=== PATIENT | female | born 1985 | race Caucasian/White ===

== ENCOUNTER 2016-09-10 05:49 | Inpatient (IN) | payer OTHER ==
[~2016-09-10 05:49] MED LIST: Citric Acid/Sodium Citrate Solution 30 ML Cup PO ONE; Ondansetron 4 MG/2 ML SDV IVPUSH PRN; Sodium Chloride 0.9% 10 ML Syringe FLUSH PRN; ceFAZolin 2 GM in Premix Bag 1 BAG IV ONE
[2016-09-10] MEDS ORDERED: Oxytocin/Normal Saline 60 UNIT/1,000 ML BAG ONE (06:26)
[2016-09-10] MEDS: Lactated Ringers 1,000 ML IV ONE ×3 (06:45→14:27)
[2016-09-10] MEDS ORDERED: Oxytocin/Normal Saline 30 UNIT/500 ML BAG IV SCH (07:00)
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
[2016-09-10] MEDS ORDERED: Morphine PF 5 MG/10 ML SDV ONE (12:51)
[2016-09-10] MEDS ORDERED: Midazolam 1 MG/ML 2 ML SDV ONE (12:51)
[2016-09-10] MEDS ORDERED: Oxytocin/Normal Saline 30 UNIT/500 ML BAG IV ONE (13:43)
[2016-09-10] MEDS ORDERED: Ketorolac 30 MG/ML SDV ONE (14:22)
[2016-09-10] MEDS ORDERED: ePHEDrine 50 MG/ML SDV ONE (14:22)
[2016-09-10] MEDS ORDERED: Ondansetron 4 MG/2 ML SDV ONE ×2 (14:22→14:24)
[2016-09-10] MEDS ORDERED: Methylergonovine 0.2 MG/1 ML Amp IM PRN (15:15)
[2016-09-10] MEDS ORDERED: diphenhydrAMINE 50 MG/ML SDV IVPUSH PRN (15:15)
[2016-09-10] MEDS ORDERED: Misoprostol 400 MCG (4 X 100 MCG TAB) RECTAL PRN (15:15)
[2016-09-10] MEDS ORDERED: Naloxone 2 MG/2 ML Syringe IVPUSH PRN (15:15)
[2016-09-10] MEDS ORDERED: Acetaminophen/oxyCODONE 325-5 MG Tab PO PRN (15:15)
[2016-09-10] MEDS ORDERED: ePHEDrine 50 MG/ML SDV IVPUSH PRN (15:15)
[2016-09-10] MEDS ORDERED: Acetaminophen 325 MG Tab PO PRN (15:15)
[2016-09-10] MEDS ORDERED: Carboprost Tromethamine 250 MCG/1 ML Amp IM ONE (15:15)
[2016-09-10] MEDS ORDERED: Measles, Mumps & Rubella Vaccine 0.5 ML SDV SUBCUT ONE (16:19)
--- NOTE | 2016-09-10 17:33 | OR ---
DATE: 09/10/2016 PROCEDURE PERFORMED: Repeat low transverse section with double-layer closure. INDICATION FOR PROCEDURE: Elective at term. GENERAL II FARMWORKER: Dr. Jacinto Roman. PREPROCEDURE DIAGNOSES: 1. A 39 and 0/7th weeks' intrauterine based on last menstrual period and 7-week ultrasound. 2. 2, para 1-0-0-1. 3. Obesity. 4. Group B strep positive. O positive, equivocal. 5. Anxiety and depression. 6. Gastroesophageal reflux disease. 7. History of oral herpes lesions. 8. History of migraine headaches. 9. Polycystic ovarian syndrome. 10.Post traumatic stress disorder. 11.Family history of colon cancer. POSTPROCEDURE DIAGNOSES: 1. A 39 and 0/7th weeks' intrauterine based on last menstrual period and 7-week ultrasound. 2. 2, para 2-0-0-2. 3. Obesity. 4. Group B strep positive. O positive, equivocal. 5. Anxiety and depression. 6. Gastroesophageal reflux disease. 7. History of oral herpes lesions. 8. History of migraine headaches. 9. Polycystic ovarian syndrome. 10.Post traumatic stress disorder. 11.Family history of colon cancer. 12.Delivery of viable female , scores of 9 and 9, weight 3025 g. BRIEF HISTORY: A 31-year-old female, admitted to the hospital for planned elective section at term. See admission history and physical for full details including history. CONSENT: Discussed with the patient and her indications, risks, benefits, and alternatives of repeat low transverse section including but not limited to, risk of infection and plan for preoperative antibiotics, risk of bleeding to the point of requiring a blood transfusion, as well as its inherent risks, risk of injury to any unintended organs or adjacent structures including, but not limited to, large blood vessels, nerves, veins, muscles, fallopian tubes, ovaries, uterus, bladder, intestines, and even potential injury to the baby, risk of complications for mother or baby requiring transfer to a higher level of care for definitive treatment, even remote risk of . She agreed to proceed and appropriate consent forms were signed and placed in the chart. PROCEDURE IN DETAIL: The patient was taken to the operating room and spinal anesthesia obtained. Diallo indwelling catheter was placed, and the patient was prepped and draped in the normal dorsal supine position with leftward tilt and abdomen and pannus taped up. Abdomen prepped and then sterile drapes applied in the usual fashion. Skin was tested and then incised in a Pfannenstiel location at 1329 hours and carried down through the underlying subcutaneous tissues with cautery and finger dissection. The fascia was incised in the midline with cautery and extended bilaterally with traction and continued cautery. The superior fascial edge grasped elevated and rectus muscles dissected off bluntly and with cautery. Inferior fascial edge then grasped tented up, and rectus muscles dissected off with traction and cautery as well. Rectus muscles in the midline with finger dissection and peritoneal cavity entered with finger dissection and extended with traction. Bacilio O retractor was then placed in appropriate location for low transverse uterine incision identified and made at 1334 hours. The baby then delivered at 1335 hours. Infant's mouth and nose were bulb suctioned. Three-vessel umbilical cord was doubly clamped and cut, and baby taken over to the warmer for further evaluation. Cord blood sample then obtained, and placenta delivered by gentle cord traction and concomitant uterine massage. Uterus cleared of any clots and debris with dry lap sponge and then hysterotomy site closed with a running lock stitch of 0 Vicryl in the usual fashion. This incision was not hemostatic; therefore, a second imbricating stitch of 0 Vicryl was used as well as some additional spot cautery and hemostasis appeared good, so the Bacilio retractor was removed and pericolic gutters were cleared of all clots and debris. Hysterotomy site reinspected and irrigated and there was some oozing present. Single figure-of- eight stitch was placed and aided with hemostasis, some additional spot cautery was used and then hemostasis was achieved, and this layer irrigated a second time for verification of hemostasis. The peritoneal and muscle layer was brought together at the base with a loose [id number] stitch and then this layer was irrigated. The fascia was then closed with a running stitch of 0 looped PDS in the usual fashion taking extra care not to injure the underlying omentum or viscera, subcutaneous tissues were then irrigated and cleared of any clots and debris and any subcutaneous bleeders treated with cautery. Skin was then closed with zeus at 1413 hours and the patient had tolerated the procedure well. FINDINGS: Viable female infant, scores of 9 and 9. Weight 6 pounds 11 ounces, 3025 g. 18 inches long. URINE OUTPUT: 250 mL clear. ESTIMATED BLOOD LOSS: 500 mL. FLUIDS: 1750 mL of crystalloids. DISPOSITION: Mother to stay in the PACU before she returned to her room. Baby to stay in the nursery at this time. [facility] /[id number] ROSARIO
[2016-09-10] MEDS: Ketorolac 30 MG/ML SDV IVPUSH SCH (20:37)
[2016-09-10] MEDS: Lactated Ringers 1,000 ML IV SCH (20:39)
[2016-09-10] MEDS: Ferrous Sulfate 325 MG Tab PO SCH (20:52)
[2016-09-11] MEDS: Ketorolac 30 MG/ML SDV IVPUSH SCH ×2 (03:18→09:08)
[2016-09-11] MEDS: Simethicone 80 MG Tab.Chew PO PRN ×3 (03:19→14:50)
[2016-09-11] MEDS: Lactated Ringers 1,000 ML IV SCH (04:21)
--- NOTE | 2016-09-11 08:48 | PCM.POSTAN ---
POST ANESTHESIA ASSESSMENT - MENTAL STATUS Mental Status: alert, oriented - VITAL SIGNS Pulse Rate: 99 SaO2: 100 Resp Rate: 20 Blood Pressure: 128/72 - RESPIRATORY Respiratory Status: respiratory rate WNL, airway patent, O2 saturation stable - CARDIOVASCULAR CV Status: pulse rate WNL, blood pressure stable - GASTROINTESTINAL GI Status: no symptoms - PAIN Pain Score: 0 - POST OP HYDRATION Hydration Status: adequate & stable - OBSERVATIONS Free Text/Narrative:: Patient is sitting in bed having breakfast. Had a good night. Full recovered from her spinal anesthetics and ambulated to bathroom once at night without any issue. Happy with her anesthetic experience.
[2016-09-11] MEDS: Docusate Sodium 100 MG Cap PO PRN (09:07)
[2016-09-11] MEDS: Ferrous Sulfate 325 MG Tab PO SCH ×2 (09:07→17:53)
[2016-09-11] MEDS: Prenatal Multivitamin with Calcium/Folic Acid/Iron Tab PO SCH (09:09)
[2016-09-11] MEDS ORDERED: Morphine PF 5 MG/10 ML SDV IV ONE (13:44)
[2016-09-11] MEDS ORDERED: Ketorolac 30 MG/ML SDV IVPUSH ONE (13:44)
[2016-09-11] MEDS ORDERED: ePHEDrine 50 MG/ML SDV IV ONE (13:44)
[2016-09-11] MEDS ORDERED: Ondansetron 4 MG/2 ML SDV IV ONE (13:44)
[2016-09-11] MEDS: Acetaminophen/oxyCODONE 325-5 MG Tab PO PRN ×2 (14:48→20:17)
--- NOTE | 2016-09-11 15:48 | PN ---
DATE: 09/11/2016 SUBJECTIVE: and postoperative day #1, the patient is doing well. She hasn't really been up and ambulating yet. Diallo catheter will be removed shortly. She is eating a regular diet. Reports the bleeding has been minimal. No chest pain or shortness of breath. No symptoms of preeclampsia. Reports some incisional pain, but overall feels that she is doing quite well and breast- feeding is going fairly well. OBJECTIVE: Vital Signs: Temperature is 99.0, pulse of 91, blood pressure 128/72, respirations 20, and O2 saturations 100% on room air. Heart: Regular without obvious murmur. Lungs: Clear to auscultation bilaterally. Abdomen: Soft and nontender. Fundus is firm and below the umbilicus. Dressing is clean, dry, and intact. Extremities: Trace edema. No erythema or tenderness noted. SCDs are still on. LABORATORY DATA: Hemoglobin down to 9.8 from a preop of 11.8, platelets are down to 199. ASSESSMENT: 1. Post repeat day #1 doing well. 2. 2, now para 2-0-0-2, delivered at 39 weeks gestation. 3. History of anxiety and depression. 4. Acid reflux disease. 5. History of herpes simplex virus 1. 6. History of migraines. 7. Polycystic ovarian syndrome. 8. Posttraumatic stress disorder. 9. Obesity. PLAN: Continue routine postoperative and care. Continue encourage . Anticipate discharge home on day of life #3. Followup appointments have already been made in the clinic. Dr. Scales will be covering over the weekend in my absence. [facility] /[id number] ROS[place]IO
[2016-09-12] MEDS: Ferrous Sulfate 325 MG Tab PO SCH ×2 (09:01→18:11)
[2016-09-12] MEDS: Simethicone 80 MG Tab.Chew PO PRN ×3 (09:02→22:24)
[2016-09-12] MEDS: Prenatal Multivitamin with Calcium/Folic Acid/Iron Tab PO SCH (09:02)
[2016-09-12] MEDS: Acetaminophen/oxyCODONE 325-5 MG Tab PO PRN ×3 (09:02→22:24)
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
[2016-09-12] MEDS ORDERED: Bacitracin Oint 28.35 GM Tube TOP PRN (12:49)
[2016-09-12] MEDS: Ibuprofen 800 MG Tab PO PRN (18:14)
[2016-09-12] MEDS: Docusate Sodium 100 MG Cap PO PRN (22:26)
[2016-09-13] MEDS: Ibuprofen 800 MG Tab PO PRN (04:40)
[2016-09-13] MEDS: Acetaminophen/oxyCODONE 325-5 MG Tab PO PRN ×2 (04:43→10:03)
[2016-09-13] MEDS: Simethicone 80 MG Tab.Chew PO PRN ×2 (04:43→10:03)
[2016-09-13] MEDS ORDERED: Measles, Mumps & Rubella Vaccine 0.5 ML SDV SUBCUT ONE (09:49)
[2016-09-13] MEDS: Ferrous Sulfate 325 MG Tab PO SCH (10:03)
[2016-09-13] MEDS: Prenatal Multivitamin with Calcium/Folic Acid/Iron Tab PO SCH (10:03)
[2016-09-13] MEDS: Docusate Sodium 100 MG Cap PO PRN (10:05)
--- NOTE | 2016-09-13 11:18 | PCM.DCSUM1 ---
Discharge Summary - Hospital Course Free Text/Narrative:: 31-year-old, now , POD#3 status post repeat section. No complications with delivery. - Discharge Data Discharge Date: 09/13/16 Discharge Disposition: Home, Self-Care 01 Condition: Good - Discharge Diagnosis/Problem(s) (1) delivery delivered SNOMED Code(s): 918217066 ICD Code: O82 - ENCOUNTER FOR DELIVERY WITHOUT INDICATION Status: Acute Current Visit: Yes (2) care in third trimester SNOMED Code(s): 713363243, 64024801, 36070952, [id number], [id number] ICD Code: Z34.93 - ENCNTR FOR SUPRVSN OF NORMAL PREG, UNSP, THIRD TRIMESTER Status: Acute Current Visit: Yes - Patient Summary/Data Operative Procedure(s) Performed: Repeat section Complications: None Consults: Consultations 09/11/16 17:35 Consult to [employer] Operations Superintendent [CONS] Routine Labs Pending at D/C: None Recommended Follow-up Testing/Procedures: None Planned Operative Procedure(s) after DC: None Hospital Course: Unremarkable hospital course. No complications. - Patient Instructions Diet: Usual Diet as Tolerated Activity: No Lifting Over 20 Pounds, Rest and Relax Today Driving: Do Not Drive (while taking pain medications) Showering/Bathing: May Shower Wound/Incision Care: Keep Operative Site/Wound Site Clean and Dry, Change Dressing Daily, Do NOT Change Dressing Notify Provider of: Fever, Increased Pain, Swelling and Redness, Drainage, Nausea and/or Vomiting - Discharge Plan Home Medications: Home Meds metFORMIN [Glucophage XR] 500 mg PO BIDM 03/30/13 [History] Vit #108/Iron/FA [ One Tablet] 1 tab PO DAILY 09/10/16 [History ] Acetaminophen [Tylenol] 650 mg PO Q6H PRN #0 tablet 09/13/16 [Rx] Docusate Sodium [Colace] 100 mg PO Q12H PRN #0 cap 09/13/16 [Rx] Ibuprofen [IJD: Ibuprofen] 800 mg PO Q8H PRN #0 tablet 09/13/16 [Rx] Patient Handouts: Delivery, Care After, Care After Delivery, Incision Care, [id number] Referrals: Flores Paz MD [Primary Care Provider] - 09/15/16 1:30 pm - Discharge Summary/Plan Comment DC Time >30 min.: No Discharge Summary/Plan Comment: Discharge home today. Follow-up with Dr. Meza in 2 days as scheduled. Percocet prescribed for pain. Reasons to return sooner were discussed with the patient, and all questions were answered. Elenita Scales MD - General Info Date of Service: 09/13/16 Subjective Update: 31-year-old female, now , POD#3 status post repeat section at 39 weeks gestation. She is ambulating well. Rash from the tape has improved. She is urinating without pain. She passing gas but has not had a bowel movement yet. She is ambulating without difficulty. She has no concerns today and is ready to go home. Functional Status: Reports: pain controlled, tolerating diet, ambulating, urinating - Review of Systems General: Reports: No Symptoms HEENT: Reports: no symptoms Pulmonary: Reports: no symptoms Cardiovascular: Reports: No Symptoms Gastrointestinal: Reports: No symptoms Genitourinary: Reports: no symptoms Musculoskeletal: Reports: no symptoms - Patient Data Vitals - Most Recent: Last Vital Signs Temp 36.6 C 09/13/16 08:00 Pulse 87 09/13/16 08:00 Resp 16 09/12/16 20:00 BP 109/82 09/12/16 20:00 Pulse Ox 100 09/12/16 16:00 Weight - Most Recent: 104.78 kg Med Orders - Current: Current Medications Acetaminophen (Tylenol) 650 mg PO Q6H PRN PRN Reason: mild pain or fever Bacitracin (Bacitracin Oint) 0 gm TOP TID PRN PRN Reason: Rash Last Admin: 09/12/16 16:20 Dose: 1 dose Diphenhydramine HCl (Benadryl) 25 mg IVPUSH Q6H PRN PRN Reason: Itching or Nausea Docusate Sodium (Colace) 100 mg PO Q12H PRN PRN Reason: Constipation Last Admin: 09/13/16 10:05 Dose: 100 mg Ephedrine Sulfate (Ephedrine Sulfate) 5 mg IVPUSH SEECOMMENT PRN PRN Reason: Other Ferrous Sulfate (Ferrous Sulfate) 325 mg PO BIDMEALS EVGENY Last Admin: 09/13/16 10:03 Dose: 325 mg Oxytocin/Sodium Chloride (Pitocin In Ns 30 Unit/500 Ml) 30 unit in 500 mls @ 500 mls/hr IV TITRATE EVGENY; 500 MUNITS/MIN PRN Reason: Protocol Last Titration: 09/10/16 16:30 Dose: 0 mls/hr Lactated Ringer's (Ringers, Lactated) 1,000 mls @ 125 mls/hr IV ASDIRECTED EVGENY Last Admin: 09/11/16 04:21 Dose: 125 mls/hr Ibuprofen (Motrin) 800 mg PO Q8H PRN PRN Reason: mild pain or fever Last Admin: 09/13/16 04:40 Dose: 800 mg Methylergonovine Maleate (Methergine) 0.2 mg IM ONETIME PRN PRN Reason: Excessive Vaginal Bleeding Misoprostol (Cytotec) 800 mcg RECTAL ASDIRECTED PRN PRN Reason: Bleeding Naloxone HCl (Narcan) 0.1 mg IVPUSH SEECOMMENT PRN PRN Reason: Respiratory Depression Oxycodone/Acetaminophen (Percocet 325-5 Mg) 1 tab PO Q4H PRN PRN Reason: Pain (moderate 4-6) Last Admin: 09/13/16 10:03 Dose: 1 tab Oxycodone/Acetaminophen (Percocet 325-5 Mg) 2 tab PO Q4H PRN PRN Reason: Pain (moderate 4-6) Last Admin: 09/12/16 03:33 Dose: 2 tab Prenat Multivit/Official Court Interpreter/Iron/Folic Ac ( Plus Iron) 1 each PO DAILY EVGENY Last Admin: 09/13/16 10:03 Dose: 1 each Simethicone (Simethicone) 80 mg PO Q4H PRN PRN Reason: Gas Last Admin: 09/13/16 10:03 Dose: 80 mg Sodium Chloride (Saline Flush) 10 ml FLUSH ASDIRECTED PRN PRN Reason: Keep Vein Open Discontinued Medications Carboprost Tromethamine (Hemabate Ds) 250 mcg IM ONETIME ONE Stop: 09/10/16 15:16 Last Admin: 09/10/16 20:52 Dose: Not Given Citric Acid/Sodium Citrate (Bicitra Solution) 30 ml PO ONETIME ONE Stop: 09/10/16 05:01 Last Admin: 09/10/16 12:41 Dose: 30 ml Ephedrine Sulfate (Ephedrine Sulfate) Confirm Administered Dose 50 mg .ROUTE .STK-MED ONE Stop: 09/10/16 14:23 Ephedrine Sulfate (Ephedrine Sulfate) 20 mg IV .STK-MED ONE Stop: 09/11/16 13:45 Cefazolin Sodium/Dextrose 2 gm (/ Premix) 50 mls @ 100 mls/hr IV ONETIME ONE Stop: 09/10/16 05:29 Last Admin: 09/10/16 13:20 Dose: 100 mls/hr Oxytocin/Sodium Chloride (Pitocin In Ns 30 Unit/500 Ml) Confirm Administered Dose 60 unit in 1,000 mls @ as directed .ROUTE .STK-MED ONE Stop: 09/10/16 06:27 Lactated Ringer's (Ringers, Lactated) 1,000 mls @ 999 mls/hr IV .BOLUS ONE Stop: 09/10/16 10:42 Last Admin: 09/10/16 14:27 Dose: 125 mls/hr Oxytocin/Sodium Chloride (Pitocin In Ns 30 Unit/500 Ml) 30 unit in 500 mls @ as directed IV .STK-MED ONE Stop: 09/10/16 13:44 Ketorolac Tromethamine (Toradol) Confirm Administered Dose 30 mg .ROUTE .STK- MED ONE Stop: 09/10/16 14:23 Ketorolac Tromethamine (Toradol) 15 mg IVPUSH Q6H EVGENY Stop: 09/11/16 09:01 Last Admin: 09/11/16 09:08 Dose: 15 mg Ketorolac Tromethamine (Toradol) 30 mg IVPUSH .STK-MED ONE Stop: 09/11/16 13:45 Measles/Mumps/Rubella Vaccine Live (M-M-R Ii Vaccine) 0.5 ml SUBCUT .ONCE ONE Stop: 09/10/16 16:20 Last Admin: 09/11/16 17:51 Dose: 0.5 ml Measles/Mumps/Rubella Vaccine Live (M-M-R Ii Vaccine) 0.5 ml SUBCUT .ONCE ONE Stop: 09/13/16 09:50 Last Admin: 09/13/16 10:09 Dose: Not Given Midazolam HCl (Versed 1 Mg/Ml) Confirm Administered Dose 2 mg .ROUTE .STK-MED ONE Stop: 09/10/16 12:52 Morphine Sulfate (Duramorph Pf) Confirm Administered Dose 5 mg .ROUTE .STK-MED ONE Stop: 09/10/16 12:52 Morphine Sulfate (Duramorph Pf) 0.25 mg IV .STK-MED ONE Stop: 09/11/16 13:45 Ondansetron HCl (Zofran) 4 mg IVPUSH Q4H PRN PRN Reason: Nausea/Vomiting Ondansetron HCl (Zofran) Confirm Administered Dose 32 mg .ROUTE .STK-MED ONE Stop: 09/10/16 14:23 Ondansetron HCl (Zofran) Confirm Administered Dose 4 mg .ROUTE .STK-MED ONE Stop: 09/10/16 14:25 Ondansetron HCl (Zofran) 8 mg IV .STK-MED ONE Stop: 09/11/16 13:45 - Exam General: Reports: alert, oriented Lungs: Reports: Clear to auscultation, Normal respiratory effort Cardiovascular: Reports: Regular Rate, Regular Rhythm, No Murmurs Abdomen: Reports: other (Rash significantly improved; Very superficial ulceration noted on left lateral abdomen. No signs of infection) Extremities: Reports: no edema Skin: Reports: warm, dry, intact Wound/Incisions: Reports: healing well, no drainage. Denies: erythema *Q Meaningful Use (DIS) - VTE *Q VTE Criteria *Q: - Stroke *Q Stroke Criteria *Q: - AMI *Q AMI Criteria *Q:
[2016-09-13 13:34] VITALS: BP 129/77
== END 2016-09-13 13:00 | disposition home or self-care (01) | DRG 766 ==
LOC: DL.MS 05:49 → UNDOADMOB 05:49 → INTOOBSV 05:52 → OBSVTOIN 05:52 → DL.MS 13:35 → DL.OB 09-13 12:55 → UNDODISIN 09-13 13:00
PROVIDERS: ADMIT Family Medicine; ATTEND Family Medicine
PROC: 10D00Z1 Extraction of Products of Conception, Low, Open Approach (ICD-10-PCS; principal; 2016-09-10)
PROC: 3E0R3BZ Introduction of Anesthetic Agent into Spinal Canal, Percutaneous Approach (ICD-10-PCS; 2016-09-10)
DX: O34.211 Maternal care for low transverse scar from previous cesarean delivery (principal); N85.8 Other specified noninflammatory disorders of uterus; O75.82 Onset (spontaneous) of labor after 37 completed weeks of gestation but before 39 completed weeks gestation, with delivery by (planned) cesarean section; Z3A.39 39 weeks gestation of pregnancy; Z37.0 Single live birth; O99.824 Streptococcus B carrier state complicating childbirth; F41.8 Other specified anxiety disorders; E28.2 Polycystic ovarian syndrome; F43.10 Post-traumatic stress disorder, unspecified; R21 Rash and other nonspecific skin eruption; O99.214 Obesity complicating childbirth; O99.344 Other mental disorders complicating childbirth; K21.9 Gastro-esophageal reflux disease without esophagitis
CPT/HCPCS: 36415; 85025; 85027; 86803; 86850; 86900; 86901; 87340; 87389; 90707; A9270-GY; J0690; J1885; J2274; J2405; J2590; J7120

== ENCOUNTER 2022-09-30 16:42 | Emergency (ER) | payer OTHER ==
[2022-09-30 17:06] LABS: APPEARANCE,URINE CLEAR (CLEAR); BILIRUBIN,URINE NEGATIVE (NEGATIVE); COLOR,URINE YELLOW (YELLOW); GLUCOSE,URINE NEGATIVE (NEGATIVE); KETONES,URINE NEGATIVE (NEGATIVE); LEUKOCYTE ESTERASE,URINE NEGATIVE (NEGATIVE); NITRITE,URINE NEGATIVE (NEGATIVE); OCCULT BLOOD,URINE TRACE-INTACT (NEGATIVE); PH,URINE 6.5 (5.0-9.0); PROTEIN,URINE NEGATIVE (NEGATIVE); UROBILINOGEN,URINE 0.2 mg/dL (0.2-1.0)
[2022-09-30] MEDS: Ketorolac 30 MG/ML SDV IVPUSH ONE (17:12)
[2022-09-30 17:18] LABS: BASOPHILS PERCENT AUTO 0.4 % (0.0-1.0); EOSINOPHILS PERCENT AUTO 1.4 % (1.0-3.0); HEMATOCRIT 38.1 % (37.0-47.0); HEMOGLOBIN 12.6 g/dL (12.0-16.0); LYMPHOCYTES PERCENT AUTO 28.5 % (20.5-50.1); MEAN CORPUSCULAR HEMOGLOBIN 27.9 pg (27.0-34.0); MEAN CORPUSCULAR HGB CONC 33.1 g/dL (33.0-35.0); MEAN CORPUSCULAR VOLUME 84.5 fL (80-100); MONOCYTES PERCENT AUTO 6.6 % (2-8); NEUTROPHILS PERCENT AUTO 63.1 % (42.2-75.2); PLATELET COUNT,PLT 311 10^3/uL (150-450); RED BLOOD CELL COUNT 4.51 10^6/uL (4.2-5.4); WHITE BLOOD CELL COUNT,WBC 11.2 10^3/uL (5.0-10.0)
[2022-09-30 17:26] LABS: BACTERIA,URINE FEW /HPF (0-FEW/HPF); EPITHELIAL CELLS,URINE MODERATE /HPF (NOT SEEN); MUCUS,URINE FEW /LPF (NOT SEEN); WBC,URINE 0-5 /HPF (0-5/HPF)
[2022-09-30 17:35] LABS: A/G RATIO 0.9; ALBUMIN 3.4 g/dL (3.4-5.0); ANION GAP 10.8 mEq/L (7-13); BILIRUBIN TOTAL 0.2 mg/dL (0.2-1.0); BUN/CREATININE RATIO 20.2 (No establ ref range); CALCIUM 8.7 mg/dL (8.5-10.1); CREATININE 0.84 mg/dL (0.55-1.02); EST CRCL DRUG DOSING (CG) 69.19 mL/min; POTASSIUM,K 3.8 mmol/L (3.5-5.1); PROTEIN TOTAL,TP 7.4 g/dL (6.4-8.2)
[2022-09-30 18:46] VITALS: BP 139/82; PULSE 91
== END 2022-09-30 18:41 | disposition home or self-care (01) ==
LOC: DL.ED 16:42
DX: M54.6 Pain in thoracic spine (principal); Z88.5 Allergy status to narcotic agent
CPT/HCPCS: 36415; 74176; 80053; 81001; 81025; 85025; 96374; 99284; J1885